=== PATIENT | male | born 1995 | race Caucasian/White ===

== ENCOUNTER 2018-08-09 10:13 | Emergency (ER) | payer OTHER ==
[2018-08-09] MEDS: TETRACAINE 0.5% OPHTH SOLN 4ML OU (11:00)
== END 2018-08-09 12:40 | disposition home or self-care (01) ==
LOC: M ED 10:13
DX: H10.213 Acute toxic conjunctivitis, bilateral (principal); Z77.098 Contact with and (suspected) exposure to other hazardous, chiefly nonmedicinal, chemicals
CPT/HCPCS: 99284